=== PATIENT | female | born 1980 | race Caucasian/White ===

== ENCOUNTER 2019-11-11 11:02 | Outpatient (CLI) | payer OTHER, SELFPAY ==
--- NOTE | ~2019-11-11 | XR_ITS ---
XR thoracic spine 3V DATE: 11/11/2019 11:44 INDICATION: Neck and upper back pain. No known injury. TECHNIQUE: AP, lateral, swimmer views COMPARISON: None FINDINGS: There is mild dextroscoliosis of the thoracic spine. No fracture or dislocation or bone ricky truction. The thoracic pedicles are intact. No paraspinal soft tissue thickening. IMPRESSION: Mild dextroscoliosis Reviewed, dictated and finalized at location B. D BANK TECHNOLOGIST IMPRESSION: Mild dextroscoliosis
--- NOTE | ~2019-11-11 | XR_ITS ---
XR_CERV2-3V_CR DATE: 11/11/2019 11:44 INDICATION: Neck and upper back pain. No known injury. TECHNIQUE: AP, lateral, swimmer views COMPARISON: None FINDINGS: C1 and C2 are normally aligned and the odontoid process is intact. No fracture or dislocati on or locked facet or prevertebral soft tissue swelling. There is reversal of cervical curvature and minimal levoscoliosis of the cervical spine. There is minimal loss of interspace height and mild anterior spurring at C4-5. There is moderately prominent loss of interspace height and mild anterior spurring at C5-6. IMPRESSION: Degenerative disc disease, most prominent at C5-6 Reviewed, dictated and finalized at Location A. Reviewed, dictated and finalized at location B. JOINTER OPERATOR
[2019-11-11 11:15] LABS: Basophils Absolute Auto 0.04 K/mm3 (0.00-0.10); Basophils Percent Auto 0.5 % (0.0-1.0); Eosinophils Absolute Auto 0.16 K/mm3 (0.02-0.50); Hematocrit 43.4 % (35.0-49.0); Hemoglobin 14.6 g/dL (12.0-15.0); Immature Granulocyte Absolute 0.03 K/mm3 (0.00-0.00); Immature Granulocyte Percent A 0.4 % (0.0-0.0); Lymphocytes Absolute Auto 2.35 K/mm3 (1.10-4.50); Lymphocytes Percent Auto 29.9 % (18.0-42.0); Mean Corpuscular HGB Conc 33.6 g/dL (32.0-36.0); Mean Corpuscular Hemoglobin 29.2 pg (27.0-31.0); Mean Corpuscular Volume 86.8 fL (78.0-102.0); Mean Platelet Volume 9.4 fl (9.2-11.8); Monocytes Absolute Auto 0.41 K/mm3 (0.10-0.90); Monocytes Percent Auto 5.2 % (2.0-11.0); Neutrophils Absolute Auto 4.9 K/mm3 (1.7-7.2); Platelet Count Result 229 K/mm3 (150-420); Red Cell Distribution Width 12.8 % (11.6-14.4); White Blood Count 7.9 K/mm3 (4.8-10.8)
[2019-11-11 11:34] LABS: D Dimer 0.26 mg/L (0.19-0.50)
[2019-11-11 11:39] LABS: Alanine Aminotransferase 30 U/L (14-59); Albumin Level 4.4 g/dL (3.4-5.0); Alkaline Phosphatase 55 U/L (46-116); Anion Gap 15.5 mmol/L (7-16); Aspartate Amino Transferase 19 U/L (15-37); Bilirubin,Total 0.4 mg/dL (0.00-1.00); Blood Urea Nitrogen 12 mg/dL (7-18); Calcium 10.2 mg/dL (8.5-10.1); Carbon Dioxide 27 mmol/L (21-32); Chloride 104 mmol/L (98-108); Creatine Kinase 65 U/L (26-192); Estimated Glomerular Filt Rate > 60; Glucose 108 mg/dL (70-99); Osmolality Calculated 294 mOsm/kg (285-295); Potassium 4.5 mmol/L (3.5-5.1); Sodium 142 mmol/L (136-145); Total Protein 7.9 g/dL (6.4-8.2)
[2019-11-11 11:40] LABS: Troponin I < 0.02 ng/mL (0.00-0.056)
== END 2019-11-11 11:03 | disposition home or self-care (01) ==
LOC: CHSLAB 11:06
PROVIDERS: PCP Internal Medicine; Visit Provider Nurse Practitioner Family
DX: R06.02 Shortness of breath (principal); R07.9 Chest pain, unspecified; I10 Essential (primary) hypertension; M54.2 Cervicalgia; M54.6 Pain in thoracic spine
CPT/HCPCS: 36415; 72040; 72072; 80053; 82550; 82553; 84484; 85025; 85380

== ENCOUNTER 2019-11-17 08:54 | Outpatient (RCR) | payer OTHER, SELFPAY ==
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
--- NOTE | 2019-11-26 15:21 | PCPTNOTE ---
patient called and cancelled appt for today. JAQUELIN
--- NOTE | 2019-11-28 13:18 | PCPTNOTE ---
11/28/19 - patient called and cancelled therapy this date. JTF
== END 2019-11-20 23:59 | disposition home or self-care (01) ==
LOC: CHSPT 08:54
PROVIDERS: PCP Internal Medicine; Visit Provider Nurse Practitioner Family
DX: M54.2 Cervicalgia (principal)
CPT/HCPCS: 97014; 97110; 97140; 97162; G0283

== ENCOUNTER 2020-08-12 15:37 | Outpatient (CLI) | payer OTHER, SELFPAY ==
--- NOTE | ~2020-08-12 | XR_ITS ---
EXAMINATION: XR chest 2V EXAM DATE: 08/12/2020 15:59 INDICATION: chest heaviness, SOB upon exertion x few months . TECHNIQUE: Frontal and lateral projections of the chest obtained and reviewed. Comparison is made to prior examination from 03/31/2013. FINDINGS: The lungs are clear. There are no pleural effusions. The cardiomediastinal silhouette is within normal limits. There is no pneumothorax suspected. The bones and soft tissues are unremarkab le. IMPRESSION: Normal chest x-ray exam. Reviewed, dictated and finalized at location B. DATION COORDINATOR IMPRESSION: Normal chest x-ray exam.
[2020-08-12 15:49] LABS: Basophils Absolute Auto 0.06 K/mm3 (0.00-0.10); Basophils Percent Auto 0.6 % (0.0-1.0); Hematocrit 45.5 % (35.0-49.0); Hemoglobin 14.7 g/dL (12.0-15.0); Immature Granulocyte Absolute 0.04 K/mm3 (0.00-0.00); Immature Granulocyte Percent A 0.4 % (0.0-0.0); Lymphocytes Absolute Auto 2.12 K/mm3 (1.10-4.50); Lymphocytes Percent Auto 21.8 % (18.0-42.0); Mean Corpuscular HGB Conc 32.3 g/dL (32.0-36.0); Mean Corpuscular Hemoglobin 28.4 pg (27.0-31.0); Mean Platelet Volume 9.6 fl (9.2-11.8); Monocytes Absolute Auto 0.43 K/mm3 (0.10-0.90); Monocytes Percent Auto 4.4 % (2.0-11.0); Neutrophils Percent Auto 71.8 % (50.0-70.0); Platelet Count Result 264 K/mm3 (150-420); Red Blood Count 5.17 M/mm3 (4.20-5.40); Red Cell Distribution Width 12.9 % (11.6-14.4); White Blood Count 9.7 K/mm3 (4.8-10.8)
[2020-08-12 16:21] LABS: BNP 6.9 pg/mL (0-100)
[2020-08-12 16:24] LABS: D Dimer 0.25 mg/L (0.19-0.50)
[2020-08-12 16:53] LABS: Alanine Aminotransferase 20 U/L (14-59); Albumin Level 4.5 g/dL (3.4-5.0); Alkaline Phosphatase 49 U/L (46-116); Anion Gap 7 mmol/L (8-16); Aspartate Amino Transferase 12 U/L (15-37); Bilirubin,Total 0.4 mg/dL (0.00-1.00); Blood Urea Nitrogen 12 mg/dL (7-18); Calcium 9.3 mg/dL (8.5-10.1); Carbon Dioxide 31 mmol/L (21-32); Chloride 104 mmol/L (98-108); Estimated Glomerular Filt Rate > 60; Ferritin 112 ng/mL (8-252); Free T4 Free Thyroxine 1.01 ng/dL (0.76-1.46); Glucose 97 mg/dL (70-99); Iron 42 ug/dL (50-170); Osmolality Calculated 293 mOsm/kg (285-295); Percent Iron Saturation 16 % (12-57); Potassium 4.1 mmol/L (3.5-5.1); Sodium 142 mmol/L (136-145); Thyroid Stimulating Hormone 0.88 uIU/mL (0.36-3.74); Total Protein 7.2 g/dL (6.4-8.2)
[2020-08-12 17:11] LABS: Erythrocyte Sedimentation Rate 8 mm/hr (0-15)
[2020-08-12 17:15] LABS: Free T3 2.49 pg/mL (2.18-3.98)
[2020-08-18 07:45] LABS: Anti Nuclear Antibody Titer 1:40 (Negative)
== END 2020-08-12 15:38 | disposition home or self-care (01) ==
LOC: CHSLAB 15:40
PROVIDERS: PCP Internal Medicine; Visit Provider Internal Medicine
DX: R06.00 Dyspnea, unspecified (principal); R53.83 Other fatigue
CPT/HCPCS: 36415; 71046; 80053; 82728; 83540; 83550; 83880; 84439; 84443; 84481; 85025; 85380; 85652; 86038; 86039

== ENCOUNTER 2020-10-12 14:04 | Outpatient (CLI) | payer OTHER, SELFPAY | END 2020-10-12 14:05 | disposition home or self-care (01) | LOC: CHSCARD 14:05 | PROVIDERS: PCP Internal Medicine; Visit Provider Internal Medicine | DX: R06.02 Shortness of breath (principal) | CPT/HCPCS: 94060; 94726; 94729 ==

== ENCOUNTER 2020-11-15 12:42 | Outpatient (CLI) | payer OTHER, SELFPAY ==
[2020-11-15 13:59] LABS: SARS-CoV-2 Ag Negative (Negative)
== END 2020-11-15 12:43 | disposition home or self-care (01) ==
LOC: CHSLAB 12:44
PROVIDERS: PCP Internal Medicine; Visit Provider Internal Medicine
DX: Z20.822 Contact with and (suspected) exposure to COVID-19 (principal)
CPT/HCPCS: 87426; C9803

== ENCOUNTER 2021-05-18 11:28 | Outpatient (CLI) | payer BC, SELFPAY ==
[2021-05-18 13:09] LABS: SARS-CoV-2 RNA PCR Negative (Negative)
== END 2021-05-18 11:29 | disposition home or self-care (01) ==
LOC: CHSLAB 11:30
PROVIDERS: PCP Internal Medicine; Visit Provider Internal Medicine
DX: Z20.822 Contact with and (suspected) exposure to COVID-19 (principal)
CPT/HCPCS: C9803; U0003; U0005

== ENCOUNTER 2022-06-07 11:57 | Outpatient (CLI) | payer BC, SELFPAY ==
--- NOTE | ~2022-06-07 | US_ITS ---
EXAMINATION: US right upper quadrant DATE: 06/07/2022 13:47 INDICATION: Acute onset right upper quadrant pain with nausea and vomiting TECHNIQUE: Multiple grayscale and Doppler ultrasound images of the abdomen were obtained. COMPARISON: None FINDINGS: Pancreas is normal. Liver has normal echogenicity and contour, with a smooth surface. No liver lesion identified. No intrahepatic biliary duct dilation suspected. Portal venous flow was seen in the hepa topetal, normal direction and has normal Doppler waveform. The gallbladder is normal in appearance. There is no cholelithiasis. The common bile duct measures 3 mm, which is normal. Sonographic [place] s ign was reported as positive by the community living coach. Visual is portions of the right kidney demonstrates normal contour and echogenicity with no hydronephrosis. IMPRESSION: 1. Positive sonographic Verde sign but with normal-appearing ultrasound with normal gallbladder with no cholelithiasis. Reviewed, dictated and finalized at location A. IMPRESSION: 1. Positive sonographic Verde sign but with normal-appearing ultrasound with n ormal gallbladder with no cholelithiasis.
[2022-06-07 12:11] LABS: Appearance Urine Clear (Clear); Basophils Absolute Auto 0.06 K/mm3 (0.00-0.10); Basophils Percent Auto 0.9 % (0.0-1.0); Bilirubin Urine Negative (Negative); Color Urine Light Yellow (Yellow); Eosinophils Absolute Auto 0.11 K/mm3 (0.02-0.50); Eosinophils Percent Auto 1.6 % (1.0-6.0); Glucose Urine UA Negative (Negative); Hematocrit 43.8 % (35.0-49.0); Hemoglobin 14.6 g/dL (12.0-15.0); Immature Granulocyte Absolute 0.02 K/mm3 (0.00-0.00); Immature Granulocyte Percent A 0.3 % (0.0-0.0); Ketones Urine Negative (Negative); Leukocyte Esterase Ur Negative LEU/UL (Negative); Lymphocytes Absolute Auto 1.95 K/mm3 (1.10-4.50); Lymphocytes Percent Auto 27.7 % (18.0-42.0); Mean Corpuscular HGB Conc 33.3 g/dL (32.0-36.0); Mean Corpuscular Hemoglobin 29.7 pg (27.0-31.0); Mean Corpuscular Volume 89.2 fL (78.0-102.0); Mean Platelet Volume 9.3 fl (9.2-11.8); Monocytes Absolute Auto 0.39 K/mm3 (0.10-0.90); Monocytes Percent Auto 5.5 % (2.0-11.0); Neutrophils Absolute Auto 4.5 K/mm3 (1.7-7.2); Nitrate Urine Negative (Negative); Platelet Count Result 227 K/mm3 (150-420); Protein Urine Negative (Negative); Red Blood Count 4.91 M/mm3 (4.20-5.40); Red Cell Distribution Width 12.4 % (11.6-14.4); Specific Grav Ur 1.015 (1.010-1.020); Urobilinogen Urine 0.2 mg/dL (0.2-1.0)
[2022-06-07 12:16] LABS: Add Urine Microscopic? YES; Bacteria Urine Trace /hpf; Blood Urine Trace-Intact (Negative); RBC Urine None seen /hpf (0-2); Squamous Epithelial Cell Urine Few /hpf (Few); WBC Urine None seen /hpf (0-3)
[2022-06-07 12:25] LABS: Albumin Level 4.1 g/dL (3.4-5.0); Alkaline Phosphatase 50 U/L (46-116); Amylase 43 U/L (25-115); Anion Gap 5 mmol/L (8-16); Aspartate Amino Transferase 11 U/L (15-37); Bilirubin,Total 0.5 mg/dL (0.00-1.00); Blood Urea Nitrogen 7 mg/dL (7-18); Carbon Dioxide 30 mmol/L (21-32); Chloride 104 mmol/L (98-108); Estimated Glomerular Filt Rate > 60; Glucose 101 mg/dL (70-99); Lipase 72 U/L (73-393); Osmolality Calculated 286 mOsm/kg (285-295); Potassium 3.7 mmol/L (3.5-5.1); Sodium 139 mmol/L (136-145)
[2022-06-07 12:34] LABS: Alanine Aminotransferase 16 U/L (14-59)
== END 2022-06-07 11:58 | disposition home or self-care (01) ==
PROVIDERS: PCP Internal Medicine; Visit Provider Internal Medicine
DX: R10.9 Unspecified abdominal pain (principal); R10.11 Right upper quadrant pain; R11.2 Nausea with vomiting, unspecified
CPT/HCPCS: 36415; 76705; 80053; 81001; 82150; 83690; 85025

== ENCOUNTER 2022-06-09 08:54 | Outpatient (CLI) | payer BC, SELFPAY ==
--- NOTE | ~2022-06-09 | NM_ITS ---
EXAMINATION: NM hepatobiliary w pharm DATE: 06/09/2022 12:00 INDICATION: Right upper quadrant abdominal pain. COMPARISON: Ultrasound 06/07/2022 TECHNIQUE: 5.3 mCi Tc-99m mebrofenin (Choletec) was administered intravenously. Scintigraphic images of the abdomen were obtained for one hour. Then, 1.3 mcg sincalide (Kinevac) IV was administered, an d imaging was continued for 30 minutes. FINDINGS: There is normal clearance of radiotracer from the blood pool. There is homogeneous tracer u ptake by the liver. Activity progresses to the bowel and gallbladder. Gallbladder ejection fraction (GBEF) was 43%. Note that most patients with gallbladder dysfunction have GBEF < 35%, which overlaps with the broad normal range of 10-90%. IMPRESSION: 1. Normal hepatobiliary scintigraphy. Reviewed, dictated and finalized at location A.
== END 2022-06-09 08:55 | disposition home or self-care (01) ==
LOC: CHSIMG 08:55
PROVIDERS: PCP Internal Medicine; Visit Provider Internal Medicine
DX: R10.11 Right upper quadrant pain (principal)
CPT/HCPCS: 78227; A9537; J2805

== ENCOUNTER 2022-06-26 10:28 | Outpatient (CLI) | payer BC, SELFPAY ==
--- NOTE | ~2022-06-26 | CT_ITS ---
EXAMINATION: CT abdomen pelvis wo con DATE: 06/26/2022 11:53 INDICATION: Bilateral flank pain. TECHNIQUE: Computed tomography (CT) of the abdomen and pelvis was performed without intravenous contr ast. Automated exposure control and iterative reconstruction technique were employed. The dose-length product was 220.08 mGy-cm. COMPARISON: CT abdomen and pelvis 05/16/2004 FINDINGS: The visualized portions of the lung bases demonstrate mild atelectasis. No pleural effusion . The heart size is normal. No pericardial effusion. The liver, gallbladder, spleen, pancreas, adrena l glands, and kidneys are normal. There is no urolithiasis. There are no dilated loops of bowel. The appendix is not visualized. There are no pathologically enlarged lymph nodes. There is no free intrap eritoneal fluid. There is mild thoracolumbar spondylosis. IMPRESSION: 1. No urolithiasis. Reviewed, dictated and finalized at location A. IMPRESSION: 1. No urolithiasis.
--- NOTE | ~2022-06-26 | XR_ITS ---
LUMBAR SPINE INDICATION: Low back pain TECHNIQUE: 3 views lumbar spine COMPARISON: Thoracic spine series dated 11/11/2019 FINDINGS: No fracture, subluxation or dislocation. There is mild spondylosis at the lower thoracic sp ine. No evidence for spondylolysis or spondylolisthesis. Vertebral bodies and disk spaces are preser isa. IMPRESSION: 1: No acute abnormality of the lumbar spine identified. 2: Mild lower thoracic spondylosis. Reviewed, dictated and finalized at location A.
[2022-06-26 10:42] LABS: Basophils Absolute Auto 0.05 K/mm3 (0.00-0.10); Basophils Percent Auto 0.7 % (0.0-1.0); Eosinophils Absolute Auto 0.14 K/mm3 (0.02-0.50); Eosinophils Percent Auto 1.9 % (1.0-6.0); Hemoglobin 14.2 g/dL (12.0-15.0); Immature Granulocyte Absolute 0.02 K/mm3 (0.00-0.00); Immature Granulocyte Percent A 0.3 % (0.0-0.0); Lymphocytes Absolute Auto 1.77 K/mm3 (1.10-4.50); Lymphocytes Percent Auto 24.1 % (18.0-42.0); Mean Corpuscular Hemoglobin 29.4 pg (27.0-31.0); Mean Platelet Volume 9.4 fl (9.2-11.8); Monocytes Absolute Auto 0.34 K/mm3 (0.10-0.90); Monocytes Percent Auto 4.6 % (2.0-11.0); Neutrophils Percent Auto 68.4 % (50.0-70.0); Platelet Count Result 220 K/mm3 (150-420); Red Blood Count 4.83 M/mm3 (4.20-5.40); Red Cell Distribution Width 12.9 % (11.6-14.4); White Blood Count 7.4 K/mm3 (4.8-10.8)
[2022-06-26 11:00] LABS: Alanine Aminotransferase 16 U/L (14-59); Albumin Level 4.1 g/dL (3.4-5.0); Alkaline Phosphatase 49 U/L (46-116); Amylase 48 U/L (25-115); Anion Gap 2 mmol/L (8-16); Aspartate Amino Transferase 14 U/L (15-37); Bilirubin,Total 0.5 mg/dL (0.00-1.00); Blood Urea Nitrogen 15 mg/dL (7-18); Carbon Dioxide 32 mmol/L (21-32); Chloride 105 mmol/L (98-108); Estimated Glomerular Filt Rate > 60; Glucose 101 mg/dL (70-99); Lipase 88 U/L (73-393); Osmolality Calculated 288 mOsm/kg (285-295); Potassium 4.2 mmol/L (3.5-5.1); Sodium 139 mmol/L (136-145)
[2022-06-26 11:02] LABS: CRP < 0.2 mg/dL (0.0-0.9)
== END 2022-06-26 10:29 | disposition home or self-care (01) ==
PROVIDERS: PCP Internal Medicine; Visit Provider Nurse Practitioner Family
DX: R10.9 Unspecified abdominal pain (principal); N39.0 Urinary tract infection, site not specified
CPT/HCPCS: 36415; 72100; 74176; 80053; 82150; 83690; 85025; 86140

== ENCOUNTER 2022-06-30 12:19 | Outpatient (CLI) | payer BC, SELFPAY ==
[2022-06-30 12:37] LABS: Basophils Absolute Auto 0.06 K/mm3 (0.00-0.10); Basophils Percent Auto 0.8 % (0.0-1.0); Eosinophils Absolute Auto 0.08 K/mm3 (0.02-0.50); Eosinophils Percent Auto 1.1 % (1.0-6.0); Hematocrit 42.7 % (35.0-49.0); Immature Granulocyte Absolute 0.02 K/mm3 (0.00-0.00); Immature Granulocyte Percent A 0.3 % (0.0-0.0); Lymphocytes Absolute Auto 2.15 K/mm3 (1.10-4.50); Lymphocytes Percent Auto 28.6 % (18.0-42.0); Mean Corpuscular HGB Conc 32.8 g/dL (32.0-36.0); Mean Corpuscular Hemoglobin 28.9 pg (27.0-31.0); Mean Platelet Volume 9.2 fl (9.2-11.8); Monocytes Absolute Auto 0.44 K/mm3 (0.10-0.90); Monocytes Percent Auto 5.8 % (2.0-11.0); Neutrophils Absolute Auto 4.8 K/mm3 (1.7-7.2); Neutrophils Percent Auto 63.4 % (50.0-70.0); Platelet Count Result 255 K/mm3 (150-420); Red Blood Count 4.85 M/mm3 (4.20-5.40); Red Cell Distribution Width 12.7 % (11.6-14.4); White Blood Count 7.5 K/mm3 (4.8-10.8)
[2022-06-30 12:52] LABS: Creatine Kinase 62 U/L (26-192)
[2022-06-30 12:53] LABS: CRP < 0.2 mg/dL (0.0-0.9)
[2022-06-30 13:08] LABS: Rheumatoid Factor Screen Negative (Negative)
[2022-06-30 13:39] LABS: Erythrocyte Sedimentation Rate 6 mm/hr (0-15)
[2022-07-03 12:03] LABS: Anti Cyclic Citrullinated Pept <16 Units (<20)
[2022-07-05 04:27] LABS: Aldolase 3.6 U/L (<=8.1)
== END 2022-06-30 12:20 | disposition home or self-care (01) ==
LOC: CHSLAB 12:21
PROVIDERS: PCP Internal Medicine; Visit Provider Internal Medicine
DX: M12.89 Other specific arthropathies, not elsewhere classified, multiple sites (principal)
CPT/HCPCS: 36415; 82085; 82550; 85025; 85652; 86038; 86039; 86140; 86200; 86430

== ENCOUNTER 2023-02-24 08:42 | Emergency (ER) | payer BC, SELFPAY ==
--- NOTE | ~2023-02-24 | CT_ITS ---
EXAMINATION: CT abdomen pelvis wo con DATE: 02/24/2023 09:58 INDICATION: Flank pain TECHNIQUE: Computed tomography (CT) of the abdomen and pelvis was performed without intravenous contr ast. The dose-length product (DLP) was 445.64 mGy-cm. Automated exposure control and iterative recons truction technique were employed. COMPARISON: 06/26/2022 FINDINGS: Minimal dependent atelectasis is present in the lung bases. The heart size is normal. The l iver, spleen, pancreas, gallbladder, and adrenal glands are normal. No stones are identified in the k idneys, ureters, or bladder. No hydronephrosis or hydroureter. The appendix is normal. No pathologica lly enlarged abdominal or pelvic lymph nodes are identified. No free intraperitoneal gas or evidence of bowel obstruction. IMPRESSION: 1. No CT correlate for the patient's symptoms. Reviewed, dictated and finalized at location A.
[2023-02-24 08:54] VITALS: BP 137/90; PULSE 69; RESP 20; TEMP 36.4; O2SAT 100
[2023-02-24 09:05] LABS: Appearance Urine Clear (Clear); Bacteria Urine None Seen /hpf; Bilirubin Urine Negative (Negative); Blood Urine 2+ (Negative); Color Urine Yellow (Yellow); Glucose Urine UA Negative (Negative); Ketones Urine Negative (Negative); Leukocyte Esterase Ur 3+ LEU/UL (Negative); Nitrate Urine Negative (Negative); Non Pathogenic Casts 0-2; Protein Urine Negative (Negative); Specific Grav Ur 1.002 (1.001-1.035); Squamous Epithelial Cell Urine None seen /hpf (Few); Urobilinogen Urine 0.2 mg/dL (<2.0); WBC Urine 51-100 /hpf; pH Urine 7.5 (5.0-9.0)
[2023-02-24 09:10] LABS: Add Urine Microscopic? YES
--- NOTE | 2023-02-24 09:27 | ED.GENADULT ---
HPI - General Adult General Chief complaint: Urogenital-Female Stated complaint: burning with urination - blood in urine Time Seen by Provider: 02/24/23 09:06 History of Present Illness HPI narrative: Alesha Acosta is a 42 y/o female who presents with complaints of lower abdominal discomfort/pressure that started a few days ago. She also reports of pain/pressure with urinating. She noticed blood in in her urine today and became concerned something was wrong. She denies fever/chills/flank pain/nausea/vomiting. Related Data Allergies Allergy/AdvReac Type Severity Reaction Status Date / Time No Known Allergies Allergy Unknown Verified 02/24/23 08:43 Review of Systems Review of Systems: CONSTITUTIONAL: Denies fever, chills, or sweats. EYES: Denies visual changes, redness, or discharge. ENT: Denies rhinorrhea, congestion, sore throat, or otalgia. CARDIOVASCULAR: Denies chest pain, palpitations, or edema. RESPIRATORY: Denies cough or dyspnea. GASTROINTESTINAL: Reports abdominal pain, Denies nausea, vomiting, or diarrhea. GENITOURINARY: Reports dysuria and hematuria. SKIN: Denies rash or itching. MUSCULOSKELETAL: Denies back pain, joint pain, or myalgia. NEUROLOGIC: Denies headache, numbness, dizziness, or weakness. PSYCHIATRIC: Denies anxiety or depression. PMFSH Social History Social History Smoking status: Never smoker Exam Narrative: GENERAL: Well-appearing, well-nourished, and in no acute distress. HEAD: Normocephalic, atraumatic. EYES: PERRLA and EOMI. ENT: Nares clear, no rhinorrhea or epistaxis. Mucous membranes moist. Oropharynx without tonsillar hypertrophy exudate or other lesions. Bilateral TMs pearly ayon nonbulging NECK: Supple. No adenopathy or masses. No carotid bruits or JVD CHEST: Clear to auscultation. No respiratory distress. No wheezes rales or rhonchi HEART: Regular rate and rhythm. No murmur heard. Normal peripheral pulses. ABDOMEN: Soft, tender to suprapubic area, nondistended, normal active bowel sounds. EXTREMITIES: Normal range of motion. No edema. SKIN: Warm, dry, no rash. NEURO: No focal deficits. Alert and oriented x3. PSYCH: Normal mood and affect. Course Vital Signs Vital signs: Vital Signs Temperature 36.4 C 05/20/23 08:54 Pulse Rate 69 02/24/23 08:54 Respiratory Rate 20 02/24/23 08:54 Blood Pressure 137/90 02/24/23 08:54 Pulse Oximetry 100 02/24/23 08:54 Temperature 36.4 C 02/24/23 08:54 Pulse Rate 79 02/24/23 09:45 Respiratory Rate 20 02/24/23 09:45 Blood Pressure 116/80 02/24/23 09:45 Pulse Oximetry 100 02/24/23 09:45 Vitals reviewed by me. Medical Decision Making MDM Narrative Medical decision making narrative: On exam pt is calm/ reports of lower abdominal pain /pressure with noticing blood in urine today. No CVA tenderness noted on exam on either side Afebrile No recent UTI Hx of partial hysterectomy Plan to check UA/ CT to rule out ureter lithiasis/ Start IV antibiotic's accordingly with her pending urine results and will d/c home with antibiotics as appropriate Differential Diagnosis Differential Diagnosis: Urinary tract infection/ ureter lithiasis/ pyelonephritis / constipation/ Vital Signs Vital Signs: Vital Signs Temperature 36.4 C 02/24/23 08:54 Pulse Rate 69 02/24/23 08:54 Respiratory Rate 20 02/24/23 08:54 Blood Pressure 137/90 02/24/23 08:54 Pulse Oximetry 100 02/24/23 08:54 Temperature 36.4 C 02/24/23 08:54 Pulse Rate 79 02/24/23 09:45 Respiratory Rate 20 02/24/23 09:45 Blood Pressure 116/80 02/24/23 09:45 Pulse Oximetry 100 02/24/23 09:45 Lab Data Lab results reviewed: Yes I reviewed the patient's lab results. Labs: Lab Results 02/24/23 Range/Units 08:54 Urine Color Yellow (Yellow) Urine Appearance Clear (Clear) Urine pH 7.5 (5.0-9.0) Ur Specific [place] 1.002 (1.001-1.035) Urine Protein Negative (Negative) mg/dL
[2023-02-24] MEDS: ONDANSETRON INJ 4 MG/2 ML VIAL IV PUSH (09:37)
[2023-02-24] MEDS: KETOROLAC 30 MG/ML VIAL (*BKC) IV PUSH (09:38)
[2023-02-24 09:45] VITALS: BP 116/80; PULSE 79; RESP 20; O2SAT 100
[2023-02-24 11:25] VITALS: BP 115/79; PULSE 63; RESP 18; O2SAT 99
== END 2023-02-24 11:26 | disposition home or self-care (01) ==
PROVIDERS: Emergency Medicine; Emergency Provider Nurse Practitioner Family; PCP Internal Medicine
DX: N30.01 Acute cystitis with hematuria (principal); Z90.711 Acquired absence of uterus with remaining cervical stump
CPT/HCPCS: 74176; 81001; 81025; 87086; 96365; 96375; 99284; J0696; J1885; J2405

== ENCOUNTER 2023-11-15 14:27 | Outpatient (CLI) | payer BC, SELFPAY ==
--- NOTE | ~2023-11-15 | US_ITS ---
EXAMINATION: US pelvic complete w TV DATE: 11/15/2023 15:16 INDICATION: Pelvic pain. TECHNIQUE: Multiple transabdominal and transvaginal sonographic images of the pelvis were obtained. COMPARISON: CT abdomen pelvis 02/24/2023 FINDINGS: TRANSABDOMINAL ULTRASOUND: The uterus and left ovary are absent. There is no free fluid in the pelvis. TRANSVAGINAL ULTRASOUND: The right ovary measures 3.1 x 1.8 x 1.6 cm . There is normal vascular flow in right ovary. IMPRESSION: 1. Normal right ovary. 2. Absent uterus and left ovary. Reviewed, dictated and finalized at location E. STRAP IRONER
== END 2023-11-15 14:28 | disposition home or self-care (01) ==
PROVIDERS: PCP Internal Medicine; Visit Provider Obstetrics & Gynecology
DX: R10.2 Pelvic and perineal pain (principal); Z90.721 Acquired absence of ovaries, unilateral
CPT/HCPCS: 76830; 76856

== ENCOUNTER 2024-06-06 15:29 | Outpatient (CLI) | payer BC, SELFPAY ==
--- NOTE | ~2024-06-06 | XR_ITS ---
EXAMINATION: XR hand LT min 3V DATE: 06/06/2024 15:50 INDICATION: Left hand fourth digit injury and pain. TECHNIQUE: 3 views of left hand were obtained. COMPARISON: None. FINDINGS: Alignment is normal. No fracture. Joint spaces are normal. IMPRESSION: 1. Normal left hand. Reviewed, dictated and finalized at location A. IMPRESSION: 1. Normal left hand.
== END 2024-06-06 15:30 | disposition home or self-care (01) ==
LOC: CHSLAB 15:31
PROVIDERS: PCP Internal Medicine; Visit Provider Nurse Practitioner Family
DX: S69.92XA Unspecified injury of left wrist, hand and finger(s), initial encounter (principal)
CPT/HCPCS: 73130

== ENCOUNTER 2024-07-24 12:02 | Emergency (ER) | payer BC, SELFPAY ==
[2024-07-24] VITALS (24 sets, daily range): BP systolic 103–173; BP diastolic 70–102; PULSE 64–84; RESP 14–21; TEMP 36.7; O2SAT 94–98
--- NOTE | ~2024-07-24 | XR_ITS ---
EXAMINATION: XR chest 1V portable 07/24/2024 12:28 INDICATION: Chest pain PROCEDURE: AP portable COMPARISON: 08/12/2020 FINDINGS: The lungs are clear. The cardiomediastinal silhouette is within normal limits. There are no pleural effusions. There is no pneumothorax suspected. IMPRESSION: 1: NO ACUTE CARDIOPULMONARY DISEASE. Reviewed, dictated and finalized at location B.
--- NOTE | 2024-07-24 12:04 | ECG_ITS ---
Test Date: 2024-07-24 12:11:33 Measurements Intervals [place] Rate: 73 P: 11 DC: 131 QRS: 63 QRSD: 85 T: 59 QT: 431 QTc: 478 Interpretive Statements SINUS RHYTHM WITH SINUS ARRHYTHMIA MINIMAL ST DEPRESSION [0.025+ mV ST DEPRESSION] No previous ECG available for comparison Electronically Signed On 07-24-2024 14:24:26 CDT by Donny Carrion M.D.
[2024-07-24] MEDS: ASPIRIN 81 MG CHEWABLE TABLET 324 MG PO (12:20)
[2024-07-24 12:23] LABS: Basophils Absolute Auto 0.06 K/mm3 (0.00-0.10); Basophils Percent Auto 0.7 % (0.0-1.0); Eosinophils Absolute Auto 0.07 K/mm3 (0.02-0.50); Eosinophils Percent Auto 0.8 % (1.0-6.0); Hematocrit 44.1 % (35.0-49.0); Immature Granulocyte Absolute 0.03 K/mm3 (0.00-0.00); Immature Granulocyte Percent A 0.3 % (0.0-0.0); Lymphocytes Percent Auto 21.9 % (18.0-42.0); Mean Corpuscular Hemoglobin 29.2 pg (27.0-31.0); Mean Platelet Volume 9.5 fl (9.2-11.8); Monocytes Absolute Auto 0.44 K/mm3 (0.10-0.90); Monocytes Percent Auto 5.1 % (2.0-11.0); Neutrophils Absolute Auto 6.19 K/mm3 (1.70-7.20); Neutrophils Percent Auto 71.2 % (50.0-70.0); Platelet Count Result 243 K/mm3 (150-420); Red Blood Count 5.13 M/mm3 (4.20-5.40); Red Cell Distribution Width 12.7 % (11.6-14.4); White Blood Count 8.7 K/mm3 (4.8-10.8)
[2024-07-24 12:37] LABS: Add Urine Microscopic? NO; Appearance Urine Clear (Clear); Bilirubin Urine Negative (Negative); Blood Urine Trace-intact (Negative); Color Urine Light Yellow (Yellow); Glucose Urine UA Negative (Negative); Ketones Urine Negative (Negative); Leukocyte Esterase Ur Negative LEU/UL (Negative); Nitrate Urine Negative (Negative); Protein Urine Negative (Negative); Specific Grav Ur <= 1.005 (1.010-1.020); Urobilinogen Urine 0.2 mg/dL (0.2-1.0); pH Urine 6.5 (5.0-8.0)
[2024-07-24] MEDS: NITROGLYCERIN SL 0.4 MG TABLET SUBLINGUAL (12:37)
[2024-07-24 12:38] LABS: D Dimer 0.31 mg/L (0.19-0.50); INR 0.9; Partial Thromboplastin Time 26.3 Sec (23.9-30.70); Prothrombin Time 10.3 Seconds (9.50-12.1)
[2024-07-24 12:48] LABS: Amphetamine Screen Urine Negative (Negative); Barbiturate Screen Urine Negative (Negative); Benzodiazepines Screen Urine Negative (Negative); Cannabinoid Screen Urine Negative (Negative); Cocaine Screen Urine Negative (Negative); Methadone Screen Urine Negative (Negative); Opiate Screen Urine Negative (Negative); Phencyclidine Screen Urine Negative (Negative)
[2024-07-24 12:48] LABS: Strep Group A RT-PCR NOT DETECTED (Negative)
[2024-07-24] MEDS: MAG HYDROX/ALUMINUM HYD/SIMETH 30 ML, PHENobarb/HYOSCY/ATROPINE/SCOP 32.4 MG, LIDOCAINE... PO (12:50)
[2024-07-24 12:52] LABS: Alanine Aminotransferase 14 U/L (14-59); Albumin Level 3.9 g/dL (3.4-5.0); Alkaline Phosphatase 65 U/L (46-116); Anion Gap 8 mmol/L (4-12); Aspartate Amino Transferase 11 U/L (15-37); Bilirubin,Total 0.5 mg/dL (0.00-1.00); Blood Urea Nitrogen 9 mg/dL (7-18); Calcium 9.4 mg/dL (8.5-10.1); Carbon Dioxide 29 mmol/L (21-32); Chloride 102 mmol/L (98-108); Estimated CRCL calculation 84 ml/min; Estimated Glomerular Filt Rate > 60; Glucose 100 mg/dL (70-99); Lipase 31 U/L (16-77); NT Pro B Type Natriuretic Pept 54 pg/mL (0-125); Osmolality Calculated 286 mOsm/kg (285-295); Potassium 3.8 mmol/L (3.5-5.1); Sodium 139 mmol/L (136-145); Total Protein 7.4 g/dL (6.4-8.2)
[2024-07-24 12:55] LABS: Thyroid Stimulating Hormone 1.07 uIU/mL (0.36-3.74); Troponin I < 4.0 ng/L (0.00-60.4)
[2024-07-24 12:58] LABS: SARS-CoV-2 RNA PCR Negative (Negative)
[2024-07-24 13:00] LABS: Influenza A QL RT-PCR Negative (Negative); Influenza B QL RT-PCR Negative (Negative); RSV RNA, RT-PCR Negative (Negative)
--- NOTE | 2024-07-24 13:11 | ED.CHESTPAIN ---
HPI - Chest Pain General Chief Complaint: Chest Pain Stated Complaint: chest pain from dr ziegler office Source: patient Mode of arrival: ambulatory Limitations: no limitations History of Present Illness HPI narrative: this is a 44-year-old female with no significant past medical history presents from her doctor's office with some off and on 2 day history of chest tightness /epigastric discomfort with some diaphoresis with some nausea with no vomiting no shortness of breath no fever chills no dysuria or hematuria no flank pain. Patient denies smoking history no family history of heart disease. MD complaint: chest discomfort Onset (ago): day(s) Timing of current episode: episodic Prior episodes: Yes Onset: during rest Pain location: epigastric Pain radiation: none Severity: moderate Quality: tightness Relieving factors: antacids Exacerbating factors: nothing Associated symptoms: nausea Related Data Allergies Allergy/AdvReac Type Severity Reaction Status Date / Time No Known Allergies Allergy Unknown Verified 02/24/23 08:43 Review of Systems Review of Systems: All systems reviewed & are unremarkable except as noted in HPI and below PMFSH Past Medical History Medical History Patient denies medical problems Social History Social History Smoking status: Never smoker Exam Const: General: healthy appearing, no acute distress and alert Limitations: no limitations Neck: Neck: normal visual inspection and no lymphadenopathy Chest: Chest palpation & inspection: normal inspection of the chest Resp: Effort & Inspection: normal respiratory effort Auscultation: clear to auscultation bilaterally Cardio: Rate: regular rate Rhythm: regular rhythm GI: GI Palp: Yes Soft to palpation Auscultation: normal bowel sounds : General: Yes bladder normal to palpation Urinary Catheter: Urinary Catheter: patent and draining Back/Spine/Pelvis: Back: no CVA tenderness Skin: General skin exam: normal color Rashes: no rashes Neuro: General: patient oriented x3, no meningeal signs and no focal motor deficits Extrem: General: normal to inspection and no clubbing, cyanosis or edema Course Course Emergency Course: patient with atypical chest pain / epigastric tightness received a dose of aspirin and sublingual nitroglycerin, sublingual nitro did not help pain did bring her blood pressure down 173 systolic to 130 systolic. Patient subsequently received GI cocktail and described that causing a little more easing of her discomfort. Patient had blood work performed which had a normal D-dimer normal 1st set of troponin, chest x-ray with no acute cardiopulmonary abnormality COVID and RSV and influenza negative as well as strep. EKG shows normal sinus rhythm with minimal ST depression with in noncontinuous leads. Vital Signs Vital signs: Vital Signs Pulse Rate 70 07/24/24 12:02 Oxygen Delivery Room Air 07/24/24 12:02 Temperature 36.7 C 07/24/24 12:11 Pulse Rate 65 07/24/24 14:16 Respiratory Rate 20 07/24/24 14:16 Blood Pressure 125/90 07/24/24 14:16 Pulse Oximetry 98 07/24/24 14:16 Oxygen Delivery Room Air 07/24/24 14:16 MDM - Chest Pain Lab Data 07/24/24 12:11 07/24/24 12:11 Labs: Lab Results 07/24/24 07/24/24 07/24/24 Range/Units 12:11 12:11 12:34 WBC 8.7 (4.8-10.8) K/mm3 RBC 5.13 (4.20-5.40) M/mm3 Hgb 15.0 (12.0-15.0) g/dL Hct 44.1 (35.0-49.0) % MCV 86.0 (78.0-102.0) fL MCH 29.2 (27.0-31.0) pg MCHC 34.0 (32-36) g/dL RDW 12.7 (11.6-14.4) % Plt Count 243 (150-420) K/mm3 MPV 9.5 (9.2-11.8) fl Immature Gran % (Auto) 0.3 H (0.0-0.0) % Neut % (Auto) 71.2 H (50.0-70.0) % Lymph % (Auto) 21.9 (18.0-42.0) % [place] % (Auto) 5.1 (2.0-11.0) % Eos % (Auto) 0.8 L (1.0-6.0) %
[2024-07-24 14:23] LABS: Troponin I < 4.0 ng/L (0.00-60.4)
== END 2024-07-24 14:41 | disposition home or self-care (01) ==
PROVIDERS: Emergency Provider Emergency Medicine; PCP Internal Medicine
DX: R07.89 Other chest pain (principal); R10.13 Epigastric pain; Z20.822 Contact with and (suspected) exposure to COVID-19
CPT/HCPCS: 36415; 71045; 80053; 80307; 81003; 83690; 83880; 84443; 84484; 85025; 85380; 85610; 85730; 87637; 87651; 93005; 99284; A9270

== ENCOUNTER 2024-07-30 09:00 | Outpatient (CLI) | payer BC, SELFPAY ==
--- NOTE | 2024-07-31 10:53 | WPDHOLTEREM ---
Holter/Event Monitor Holter/Event Monitor Date of procedure: 07/30/24 Holter/Event Procedure: 24 Hr Holter Monitor Indications: Dyspnea, Palpitations Conclusion: 1. 24 hour holter monitor on 07/30/24. 2. Underlying rhythm is sinus rhythm. HR range 51-113 bpm; average HR 71 bpm. 3. There are 6 premature supraventricular complexes. No supraventricular tachycardia. 4. No premature ventricular complexes. No ventricular tachycardia. 5. No sinoatrial or atrioventricular blocks. No significant pauses greater than 2 seconds. 6. Patient reports symptoms of chest tightness, lightheadedness, heart racing and neck pain which demonstrate sinus rhythm, HR range 70-84 bpm.
== END 2024-07-30 09:01 | disposition home or self-care (01) ==
PROVIDERS: PCP Internal Medicine; Visit Provider Internal Medicine
DX: R06.00 Dyspnea, unspecified (principal); R00.2 Palpitations
CPT/HCPCS: 93225; 93226; 94060; 94726; 94729; 95012

== ENCOUNTER 2024-08-14 15:39 | Outpatient (CLI) | payer BC, SELFPAY ==
--- NOTE | 2024-08-14 15:44 | ECHO_ITS ---
Patient Info Name: Alesha Acosta Age: 44 years : 1980 Gender: Female Ht: 66 in Wt: 189 lbs BSA: 2.02 m2 HR: 70 bpm BP: 145 / 95 mmHg Heart Rhythm: Sinus Rhythm Technical Quality: Good Exam Date: 08/14/2024 4:49 PM Exam Location: Echo Lab Patient Status: Outpatient Admit Date: 08/14/2024 Staff Ordering Physician: Alok Bailey MD Planer Setup Operator: Mu Mitchell RDCS Attending Provider: Alok Bailey MD Referring Physician: Leo SHARMA; Exam Type: CA echo doppler color flow Study Info Indications - systolioc murmur Complete two-dimensional, color flow and Doppler transthoracic echocardiogram is performed. Summary 1. Complete two-dimensional, color flow and Doppler transthoracic echocardiogram is performed. 2. Left ventricular chamber dimension is normal. 3. Left ventricular systolic function is normal, estimated at 65-70%. 4. The left ventricular diastolic function is abnormal. 5. E/e' 10 is mildly elevated. 6. Left atrial chamber dimension is mildly enlarged. 7. There is mild aortic valve regurgitation. 8. There is trace mitral valve regurgitation. 9. There is trace tricuspid valve regurgitation. 10. No pulmonary hypertension, estimated pulmonary arterial systolic pressure is 33 mmHg. Left Ventricle E/e' 10 is mildly elevated. Left ventricular chamber dimension is normal. Left ventricular systolic function is normal, estimated at 65-70%. The left ventricular diastolic function is abnormal. Right Ventricle Right ventricular systolic function is normal and with normal TAPSE 2.9 cm. Right ventricular chamber dimension is normal. Left Atria Left atrial chamber dimension is mildly enlarged. Right Atria Right atrial chamber dimension is normal. Aortic Valve The aortic valve is trileaflet. There is no aortic valve stenosis. There is mild aortic valve regurgitation. Pulmonic Valve There is no pulmonic regurgitation. Mitral Valve There is no mitral valve stenosis. There is trace mitral valve regurgitation. Tricuspid Valve There is trace tricuspid valve regurgitation. No pulmonary hypertension, estimated pulmonary arterial systolic pressure is 33 mmHg. Pericardium/Pleural There is no pericardial effusion. Inferior Vena Cava Normal inferior vena cava with >50% collapse upon inspiration consistent with normal right atrial pressure, 5 mmHg. Aorta The aortic root size at the sinus of Valsalva is normal. Left Ventricular Outflow Tract Name Value Normal LVOT 2D LVOT Diameter 1.9 cm LVOT Doppler LVOT Peak Velocity 125 cm/s LVOT Peak Gradient 6 mmHg LVOT Mean Gradient 4 mmHg LVOT VTI 31 cm LVOT VTI/AV VTI Ratio 0.9 LVOT Stroke Volume 89 ml Mitral Valve Name Value Normal MV Doppler MV Decel [place] 397 cm/s2 MV PHT 70 ms MV Area (PHT) 3.2 cm2 4.0-5.0 MV Diastolic Function MV E Peak Velocity 96 cm/s MV A Peak Velocity 84 cm/s MV E/A 1.1 MV Decel Time 240 ms Tricuspid Valve Name Value Normal TV Regurgitation Doppler TR Peak Velocity 266 cm/s TR Peak Gradient 12 mmHg Estimated PAP/RSVP RA Pressure 5 mmHg <=5 PA Systolic Pressure 33 mmHg <36 RV Systolic Pressure 33 mmHg <36 Aortic Valve Name Value Normal AV Doppler AV Peak Velocity 153 cm/s AV Peak Gradient 9 mmHg AV Mean Gradient 6 mmHg AV VTI 33 cm AV Area (Cont Eq VTI) 2.7 cm2 >=3.0 AV Area (Cont Eq Kit) 2.3 cm2 AV V1/V2 Ratio 0.82 AV Regurgitation 2D LVOT Area 2.8 cm2 AV Regurgitation Doppler AR Decel Time 3,345 ms AR Decel Walton 96 cm/s2 AR PHT 970 ms Ventricles Name Value Normal LV Dimensions 2D/MM IVS Diastolic Thickness (2D) 1.1 cm 0.6-1.0 LVID Diastole (2D) 3.6 cm 3.8-5.2 LVIW Diastolic Thickness (2D) 0.9 cm 0.6-0.9 LVID Systole (2D) 2.1 cm 2.2-3.5 LVOT Diameter 1.9 cm LV Mass (2D Cubed) 106.16 g 67.00-162.00 LV Mass Index (2D Cubed) 52 g/m2 43-95 Relative Wall Thickness (2D) 0.50 LV Fractional Shortening/Ejection Fraction 2D/MM LV Fractional Shortening (2D) 41 % 27-45 LV EF (2D Teichkadyz) 73 % 54-74 LV Diastolic Volume (4C MOD) 82 ml LV EF (4C MOD) 65 % LV Diastolic Volume (2C MOD) 81 ml LV EF (2C MOD) 64 % LV Diastolic Volume (BP MOD) 82 ml 46-106 LV Diastolic Volume Index (BP MOD) 40 ml/m2 29-61 LV Systolic Volume (BP MOD) 30 ml 14-42 LV Systolic Volume Index (BP MOD) 15 ml/m2 8-24 LV EF (BP MOD) 63 % 54-74 LV Diastolic Length (4C) 7.9 cm LV Systolic Length (4C) 5.7 cm LV Stroke Volume (4C MOD) 53 ml Atria Name Value Normal LA Dimensions LA Volume (4C A-L) 25 ml LA Volume (BP A-L) 33 ml RA Dimensions RA Area (4C) 8.8 cm2 <=18.0 Report Signatures
== END 2024-08-14 15:40 | disposition home or self-care (01) ==
PROVIDERS: PCP Internal Medicine; Visit Provider Internal Medicine
DX: R01.1 Cardiac murmur, unspecified (principal); R00.2 Palpitations; I35.1 Nonrheumatic aortic (valve) insufficiency
CPT/HCPCS: 93306